=== PATIENT | female | born 1940 | race Caucasian/White ===

== ENCOUNTER 2016-04-23 10:07 | Day surgery (SDC) | payer MEDICARE, OTHER ==
--- NOTE | ~2016-04-23 | EGD ---
EGD REPORT [facility] [address] [id number] NAME: FRITZ SHORE JAYDONJUAN F : [birth year] STATUS : [facility]#: [id number] AGE: 76 ADM/REG DATE : 04/23/16 MR#: [id number] REPORT SERV DATE: 04/30/16 DICTATED BY: DATE: REPORT STATUS : Draft TRANSCRIBED BY: [employer] DATE: 04/30/16 [facility] Patient Name: Fritz Shore Date of : 1940 Attending MD: ANURADHA OSBORN MD Procedure Date No Time: 04/23/2016 Procedure: Colonoscopy Indications: High risk colon CA surveillance: Personal history multiple (3 or more) adenomas Referring MD: Lalo LATIF Medicines: Monitored Anesthesia Care Complications: No immediate complications. Procedure: After I obtained informed consent, the scope was passed under direct vision. Throughout the procedure, the patient's blood pressure, pulse, and oxygen saturations were monitored continuously. The PCF [id number] was introduced through the anus and advanced to the cecum, identified by appendiceal orifice and ileocecal valve. The colonoscopy was performed without difficulty. The patient tolerated the procedure well. The quality of the bowel preparation was good. Findings: The perianal and digital rectal examinations were normal. Multiple small-mouthed diverticula were found in the sigmoid colon. A sessile polyp was found at the splenic flexure. The polyp was small in size. The polyp was removed with a cold snare. Resection and retrieval were complete. A sessile polyp was found at the hepatic flexure. The polyp was small in size. The polyp was removed with a cold snare. Resection and retrieval were complete. A sessile polyp was found in the ascending colon. The polyp was diminutive in size. The polyp was removed with a cold biopsy forceps. Resection and retrieval were complete. No other significant abnormalities were identified in a careful examination of the remainder of the colon. There is no endoscopic evidence of inflammation, mass, ulcerations or angioectasia in the entire colon. No additional abnormalities were found on retroflexion. Impression: - Diverticulosis in the sigmoid colon. - One small polyp at the splenic flexure. Resected and retrieved. - One small polyp at the hepatic flexure. Resected and retrieved. EGD REPORT [address] [address] NAME: FRITZ SHORE : [birth year] STATUS : [facility]#: [id number] AGE: 76 ADM/REG DATE : 04/23/16 MR#: [id number] REPORT SERV DATE: 04/30/16 DICTATED BY: DATE: REPORT STATUS : Draft TRANSCRIBED BY: [employer] DATE: 04/30/16 - One diminutive polyp in the ascending colon. Resected and retrieved. Recommendation: - Patient has a contact number available for emergencies. The signs and symptoms of potential delayed complications were discussed with the patient. Return to normal activities tomorrow. Written discharge instructions were provided to the patient. - High fiber diet. - Discharge patient to home. - Continue present medications. - Await pathology results. - Repeat colonoscopy in 3 years for surveillance. Procedure Code(s): --- Professional --- 47167, Colonoscopy, flexible, proximal to splenic flexure; with removal of tumor(s), polyp(s), or other lesion(s) by snare technique 69698, 59, Colonoscopy, flexible, proximal to splenic flexure; with biopsy, single or multiple Diagnosis Code(s): --- Professional --- K57.30, Diverticulosis of large intestine without perforation or abscess without bleeding D12.2, Benign neoplasm of ascending colon D12.3, Benign neoplasm of transverse colon Z86.010, Personal history of colonic polyps CPT copyright 2013 [employer]. All rights reserved. The codes documented in this report are preliminary and upon carpenter refrigerator review may be revised to meet current compliance requirements. ANURADHA OSBORN MD 04/30/2016 1:06 PM This report has been signed electronically. Number of Addenda: 0 Note Initiated On: 04/23/2016 11:47 AM Scope Withdrawal Time 0 hours 13 minutes 33 seconds [id number] [id number]
[~2016-04-23 10:07] MED LIST: ADVIL PO; BIOFREEZE T; CO Q-10100 MG PO; DURAFLEX PO; EFFEX75 PO; FISH OIL1200 MG PO; LIPITOR10 PO; MULTIVITAMI1 PO; OS500+D PO; PRILOSEC40 MG PO; SIN-CR PO; TEG200 PO; VITAMIN C100 M1 PO; VITAMIN D1000 UNI1 PO
== END 2016-04-23 23:59 | disposition home or self-care (01) ==
LOC: DMU 10:07
PROVIDERS: Internal Medicine Gastroenterology
PROC: 0DBL8ZZ Excision of Transverse Colon, Via Natural or Artificial Opening Endoscopic (ICD-10-PCS; 2016-04-23)
PROC: 0DBK8ZZ Excision of Ascending Colon, Via Natural or Artificial Opening Endoscopic (ICD-10-PCS; principal; 2016-04-23 12:00)
PROC: 0DBQ8ZZ Excision of Anus, Via Natural or Artificial Opening Endoscopic (ICD-10-PCS; 2016-04-23 12:00)
DX: Z12.11 Encounter for screening for malignant neoplasm of colon (principal); D12.3 Benign neoplasm of transverse colon; D12.2 Benign neoplasm of ascending colon; K57.30 Diverticulosis of large intestine without perforation or abscess without bleeding; K21.9 Gastro-esophageal reflux disease without esophagitis; G47.33 Obstructive sleep apnea (adult) (pediatric); E16.2 Hypoglycemia, unspecified; Z86.010 Personal history of colon polyps; Z79.899 Other long term (current) drug therapy; Z88.1 Allergy status to other antibiotic agents; Z88.8 Allergy status to other drugs, medicaments and biological substances; Z91.041 Radiographic dye allergy status; Z88.0 Allergy status to penicillin
CPT/HCPCS: 82962; 88305